=== PATIENT | female | born 1935 | race Caucasian/White ===

== ENCOUNTER 2023-08-13 13:22 | Outpatient (RCR) | payer OTHER, SELFPAY | END 2023-08-13 23:59 | disposition home or self-care (01) | LOC: RPT 13:22 | PROVIDERS: ATTENDING PHYSICIAN Internal Medicine | DX: M51.36 Other intervertebral disc degeneration, lumbar region (principal); S32.030S Wedge compression fracture of third lumbar vertebra, sequela; R26.89 Other abnormalities of gait and mobility | CPT/HCPCS: 97110 ==

== ENCOUNTER 2023-09-23 15:36 | Outpatient (RCR) | payer OTHER, SELFPAY | END 2023-09-23 23:59 | disposition home or self-care (01) | LOC: RPT 15:36 | PROVIDERS: ATTENDING PHYSICIAN Internal Medicine | DX: M51.36 Other intervertebral disc degeneration, lumbar region (principal); S32.030D Wedge compression fracture of third lumbar vertebra, subsequent encounter for fracture with routine healing; R26.89 Other abnormalities of gait and mobility; Z73.6 Limitation of activities due to disability | CPT/HCPCS: 97110 ==

== ENCOUNTER 2023-10-22 14:16 | Outpatient (RCR) | payer OTHER, SELFPAY | END 2023-10-22 23:59 | disposition home or self-care (01) | LOC: RPT 14:16 | PROVIDERS: ATTENDING PHYSICIAN Internal Medicine | DX: M51.36 Other intervertebral disc degeneration, lumbar region (principal); S32.030D Wedge compression fracture of third lumbar vertebra, subsequent encounter for fracture with routine healing; R26.89 Other abnormalities of gait and mobility; Z73.6 Limitation of activities due to disability | CPT/HCPCS: 97110 ==

== ENCOUNTER 2023-11-12 14:14 | Outpatient (RCR) | payer OTHER, SELFPAY | END 2023-11-12 23:59 | disposition home or self-care (01) | LOC: RPT 14:14 | PROVIDERS: ATTENDING PHYSICIAN Internal Medicine | DX: M51.36 Other intervertebral disc degeneration, lumbar region (principal); S32.030D Wedge compression fracture of third lumbar vertebra, subsequent encounter for fracture with routine healing; R26.89 Other abnormalities of gait and mobility; Z73.6 Limitation of activities due to disability | CPT/HCPCS: 97110 ==

== ENCOUNTER 2023-12-18 14:04 | Outpatient (RCR) | payer OTHER, SELFPAY | END 2023-12-18 23:59 | disposition home or self-care (01) | LOC: RPT 14:04 | PROVIDERS: ATTENDING PHYSICIAN Internal Medicine | DX: M51.36 Other intervertebral disc degeneration, lumbar region (principal); S32.030D Wedge compression fracture of third lumbar vertebra, subsequent encounter for fracture with routine healing; R26.89 Other abnormalities of gait and mobility; Z73.6 Limitation of activities due to disability | CPT/HCPCS: 97110 ==

== ENCOUNTER 2024-01-21 14:13 | Outpatient (RCR) | payer OTHER, SELFPAY | END 2024-01-21 23:59 | disposition home or self-care (01) | LOC: RPT 14:13 | PROVIDERS: ATTENDING PHYSICIAN Internal Medicine | DX: M51.36 Other intervertebral disc degeneration, lumbar region (principal); S32.030S Wedge compression fracture of third lumbar vertebra, sequela; R26.89 Other abnormalities of gait and mobility; Z73.6 Limitation of activities due to disability | CPT/HCPCS: 97110 ==

== ENCOUNTER 2024-02-18 14:09 | Outpatient (RCR) | payer OTHER, SELFPAY | END 2024-02-18 23:59 | disposition home or self-care (01) | LOC: RPT 14:09 | PROVIDERS: ATTENDING PHYSICIAN Internal Medicine | DX: M51.36 Other intervertebral disc degeneration, lumbar region (principal); S32.030S Wedge compression fracture of third lumbar vertebra, sequela; R26.89 Other abnormalities of gait and mobility; Z73.6 Limitation of activities due to disability | CPT/HCPCS: 97110 ==

== ENCOUNTER 2024-03-17 14:29 | Outpatient (RCR) | payer OTHER, SELFPAY | END 2024-03-17 23:59 | disposition home or self-care (01) | LOC: RPT 14:29 | PROVIDERS: ATTENDING PHYSICIAN Internal Medicine | DX: M51.36 Other intervertebral disc degeneration, lumbar region (principal); S32.030S Wedge compression fracture of third lumbar vertebra, sequela; R26.89 Other abnormalities of gait and mobility; Z73.6 Limitation of activities due to disability | CPT/HCPCS: 97110 ==

== ENCOUNTER 2024-04-22 13:04 | Outpatient (RCR) | payer OTHER, SELFPAY | END 2024-04-22 23:59 | disposition home or self-care (01) | LOC: RPT 13:04 | PROVIDERS: ATTENDING PHYSICIAN Internal Medicine | DX: M51.36 Other intervertebral disc degeneration, lumbar region (principal); S32.030S Wedge compression fracture of third lumbar vertebra, sequela; R26.89 Other abnormalities of gait and mobility; Z73.6 Limitation of activities due to disability | CPT/HCPCS: 97110 ==

== ENCOUNTER 2024-05-18 14:03 | Outpatient (RCR) | payer OTHER, SELFPAY | END 2024-05-18 23:59 | disposition home or self-care (01) | LOC: RPT 14:03 | PROVIDERS: ATTENDING PHYSICIAN Internal Medicine | DX: M51.36 Other intervertebral disc degeneration, lumbar region (principal); S32.030S Wedge compression fracture of third lumbar vertebra, sequela; S32.030D Wedge compression fracture of third lumbar vertebra, subsequent encounter for fracture with routine healing; R26.89 Other abnormalities of gait and mobility; Z73.6 Limitation of activities due to disability | CPT/HCPCS: 97110 ==

== ENCOUNTER 2024-06-23 14:10 | Outpatient (RCR) | payer OTHER, SELFPAY | END 2024-06-23 23:59 | disposition home or self-care (01) | LOC: RPT 14:10 | PROVIDERS: ATTENDING PHYSICIAN Internal Medicine | DX: M51.360 Other intervertebral disc degeneration, lumbar region with discogenic back pain only (principal); M51.36 Other intervertebral disc degeneration, lumbar region (principal); S32.030S Wedge compression fracture of third lumbar vertebra, sequela; S32.030D Wedge compression fracture of third lumbar vertebra, subsequent encounter for fracture with routine healing; R26.89 Other abnormalities of gait and mobility; Z73.6 Limitation of activities due to disability; M81.0 Age-related osteoporosis without current pathological fracture; M62.81 Muscle weakness (generalized) | CPT/HCPCS: 97110 ==

== ENCOUNTER 2024-07-20 14:11 | Outpatient (RCR) | payer OTHER, SELFPAY | END 2024-07-20 23:59 | disposition home or self-care (01) | LOC: RPT 14:11 | PROVIDERS: ATTENDING PHYSICIAN Internal Medicine | DX: M51.36 Other intervertebral disc degeneration, lumbar region (principal); M51.369 Other intervertebral disc degeneration, lumbar region without mention of lumbar back pain or lower extremity pain (principal); S32.030S Wedge compression fracture of third lumbar vertebra, sequela; Z73.6 Limitation of activities due to disability; R26.89 Other abnormalities of gait and mobility; S32.030D Wedge compression fracture of third lumbar vertebra, subsequent encounter for fracture with routine healing | CPT/HCPCS: 97110 ==

== ENCOUNTER 2024-08-18 13:09 | Outpatient (RCR) | payer OTHER, SELFPAY | END 2024-08-18 23:59 | disposition home or self-care (01) | LOC: RPT 13:09 | PROVIDERS: ATTENDING PHYSICIAN Internal Medicine | DX: M51.369 Other intervertebral disc degeneration, lumbar region without mention of lumbar back pain or lower extremity pain (principal); Z73.6 Limitation of activities due to disability; S32.030D Wedge compression fracture of third lumbar vertebra, subsequent encounter for fracture with routine healing; R26.89 Other abnormalities of gait and mobility; M51.36 Other intervertebral disc degeneration, lumbar region; S32.030S Wedge compression fracture of third lumbar vertebra, sequela | CPT/HCPCS: 97110 ==

== ENCOUNTER 2024-09-22 15:19 | Outpatient (RCR) | payer OTHER, SELFPAY | END 2024-09-22 23:59 | disposition home or self-care (01) | LOC: RPT 15:19 | PROVIDERS: ATTENDING PHYSICIAN Internal Medicine | DX: M51.369 Other intervertebral disc degeneration, lumbar region without mention of lumbar back pain or lower extremity pain (principal); Z73.6 Limitation of activities due to disability; S32.030D Wedge compression fracture of third lumbar vertebra, subsequent encounter for fracture with routine healing; R26.89 Other abnormalities of gait and mobility; S32.030S Wedge compression fracture of third lumbar vertebra, sequela; M51.36 Other intervertebral disc degeneration, lumbar region | CPT/HCPCS: 97110 ==

== ENCOUNTER → 2024-10-07 14:50 | Outpatient (REF) | payer OTHER, SELFPAY | LOC: RAD 14:50 | PROVIDERS: ATTENDING PHYSICIAN Internal Medicine Rheumatology; FAMILY PHYSICIAN Internal Medicine | DX: M81.0 Age-related osteoporosis without current pathological fracture (principal) | CPT/HCPCS: 77080 ==

== ENCOUNTER 2024-10-18 13:39 | Emergency (ER) | payer OTHER, SELFPAY ==
[2024-10-18 13:54] VITALS: BP 156/60
[2024-10-18 14:13] VITALS: BP 140/72
--- NOTE | 2024-10-18 14:15 | ED.GENMED ---
History of Present Illness
General
Chief Complaint: Urinary Symptoms
Source: patient
Exam Limitations: none
Time Seen by Provider: 10/18/24 13:54
Nursing documentation reviewed up to this point in time: agreed with
History of Present Illness
History of Present Illness:
89-year-old female with history of osteoarthritis, HTN, lumbar disc disease, balance disorder, fall risk, recent UTI so we should have vascular involved hematuria which made patient, no insert 79-year-old female with history of dementia brought
in by EMS from home with son at bedside. Pt does not know why she's here. She denies pain, shortness of breath, nausea. Son states she finished a 10-day regimen of amoxicillin about 2-1/2 weeks ago for UTI, shortly thereafter she tested positive
again and started having increased confusion again so she was put on nitrofurantoin and she is on day 5 of 7 of that.
He states she typically gets up and ambulates, takes care of herself, he lives with her and cooks for her, takes her with him whenever he goes anywhere, last time she was totally at her baseline was about a month ago and she has been having these
good days and bad days since. Today he states he could not even get her out of bed, she has been lethargic and more confused.
When I told patient about her son's concerns and asked her if she was aware that she has been acting more lethargic and confused she states 'no.'
Past History
Past History
ED Past Medical History: None, HTN, Psychiatric (Dementia is listed on her list of diagnoses but her son says she does not have dementia.) and Other (Chronic back pain)
ED Past Surgical History: None and Orthopedic
Patient has exhibited threatening behavior?: No
Social History
Tobacco: Non-smoker
Alcohol: None
Personal: Single
Living: with family
Employment: Employed
Review of Systems
Review of Systems
Allergies reviewed?: Yes
All Other Systems: ROS reviewed and negative except as documented in HPI and ROS
Constitutional: Reports fatigue; Denies fever
EENT: Denies sore throat
Respiratory: Denies trouble breathing
Cardiac: Denies chest pain or syncope
ABD/GI: Reports anorexia; Denies abdominal pain, nausea, vomiting or diarrhea
: Denies dysuria
Musculoskeletal: Reports back pain (Chronic back pain); Denies edema
Skin: Reports no symptoms
Neurological: Reports weakness (Generalized weakness); Denies headache
Phy Exam
Physical Exam
Physical Exam:
GENERAL: No acute distress. A&Ox3. Knows her name, '[facility],' '[place].' States for year
CONSTITUTIONAL: 100.8
EYES: clear, conjunctivae normal
ENMT: moist mucus membranes, Pharynx nl
RESPIRATORY: Regular respirations, nonlabored, lungs clear.
CARDIOVASCULAR: Regular rate and rhythm, no murmurs, no rubs.
GI: Soft, nontender, normal BS
MUSCULOSKELETAL: Limited ROM of right arm (son states due to arthritis) Legs thick, puffy, non pitting, cannot lift them off bed. Cannot hold them up with examiner lifting them. Well perfused.
SKIN: Warm, dry, pink
PSYCH: Depressed mood and affect. Closing eyes after short encounters, easily arouses with calling of name. Well kept.
NEUROLOGIC: Awake, alert when called, drifts back with eyes closed frequently. Disoriented at times. Speech clear. Strength equal throughout. No focal neurological deficits
Course
Orders/Labs/Results
Orders:
Orders
10/18/24 14:21
CMP [Comprehensive Metabolic Panel] Urgent
Complete Blood Count/With Diff Urgent
Urinalysis Reflex To Culture Urgent
Date Specimen was Collected: 10/18/24
Time Specimen was Collected: 14:19
Urine Microscopic Reflex Cult Urgent
10/18/24 15:07
CR Chest - 2 Views Urgent
Comment:
Reason For Exam: change in mental state
10/18/24 15:21
CT Head W/o Iv Contrast Urgent
Comment:
Reason For Exam: change in mental state
Abnormal Lab Results
10/18/24
14:21
WBC 12.9 H 10^3/uL
(4.8-10.8)
RBC 3.29 L 10^6/uL
(4.20-5.40)
Hgb 8.9 L g/dL
(12.0-16.0)
Hct 28.0 L %
(37.0-47.0)
MCHC 31.8 L g/dL
(33.0-37.0)
Abs Immat Gran (auto) 0.1 H 10^3/uL
(0-0.05)
Absolute Neuts (auto) 11.0 H 10^3/uL
(1.4-6.5)
Absolute Lymphs (auto) 0.8 L 10^3/uL
(1.2-3.4)
Absolute Monos (auto) 1.0 H 10^3/uL
(0.1-0.6)
Neutrophils % 85.5 H %
(42.2-75.2)
Lymphocytes % 6.4 L %
(20.5-51.1)
Potassium 3.4 L mmol/L
(3.5-5.1)
BUN 20 H mg/dl
(7-17)
Glucose 139 H mg/dl
(70-99)
Total Protein 6.0 L g/dl
(6.3-8.2)
Albumin 3.3 L g/dl
(3.5-5.0)
Urine Ketones 1+ A
(Negative)
Ur Occult Blood Reflex 1+ A
(Negative)
Urine Albumin (Reflex) 2+ A
(Neg - Trace)
10/18/24 14:21
10/18/24 14:21
Vital Signs
Initial and Last Documented VS:
Initial Vital Signs
Temp Pulse Resp BP Pulse Ox
100.8 F H 94 15 156/60 92
10/18/24 13:54 10/18/24 13:54 10/18/24 13:54 10/18/24 13:54 10/18/24 13:54
Last Documented Vital Signs
Temp Pulse Resp BP Pulse Ox
99.4 F 83 13 144/77 98
10/18/24 15:24 10/18/24 15:15 10/18/24 15:15 10/18/24 15:00 10/18/24 15:15
MDM/Problems Addressed
Differential Diagnosis Includes:
Progressive dementia, UTI, dehydration,
MDM/Problems Addressed:
89-year-old female with history of osteoarthritis, HTN, lumbar disc disease, balance disorder, fall risk, recent UTI so we should have vascular involved hematuria which made patient, no insert 79-year-old female with history of dementia brought
in by EMS from home with son at bedside. Pt does not know why she's here. She denies pain, shortness of breath, nausea. Son states she finished a 10-day regimen of amoxicillin about 2-1/2 weeks ago for UTI, shortly thereafter she tested positive
again and started having increased confusion again so she was put on nitrofurantoin and she is on day 5 of 7 of that.
He states she typically gets up and ambulates, takes care of herself, he lives with her and cooks for her, takes her with him whenever he goes anywhere, last time she was totally at her baseline was about a month ago and she has been having these
good days and bad days since. Today he states he could not even get her out of bed, she has been lethargic and more confused. Her appetite has been poor lately. When she is sitting at the dinner table she will eat a little and then put her head
down on the table.
When I told patient about her son's concerns and asked her if she was aware that she has been acting more lethargic and confused she states 'no.'
3:00 p.m.
CBC with mild leukocytosis, elevated neutrophils
CMP: No clinically significant abnormality
UA: Negative for infection
Patient appears to have some degree of dementia although son denies.
Since he thinks her mental status is changed I will obtain a CAT scan of her head
4:[address] No acute abnormality
Chest x-ray: NAD
This examiner with the help of 1 other person got patient out of bed and she was ambulating with a walker slowly but independently with minimal guidance.
Son back and is comfortable taking pt home.
He is instructed to f/u with PCP and have a discussion about dementia which he states he will do
ED Attending Note
-
Portions of this chart may have been created with voice recognition software.� Occasional wrong word or��sound alike� substitutions may have occurred due to the inherent limitations of voice recognition software.
Discharge Plan
Departure
Prescriptions:
No Action
furosemide [Lasix] 40 mg Tablet
40 mg PO DAILY
oxybutynin chloride 15 mg Tablet Extended Release 24hr
15 mg PO DAILY
valsartan 80 mg Tablet
80 mg PO DAILY
tramadol 50 mg Tablet
50 mg PO HS
nitrofurantoin macrocrystal 100 mg Capsule
100 mg PO BID
ibuprofen [Advil] 200 mg Tablet
400 mg PO BID
Referrals:
Jori Card MD [Family Provider] -
Interventions
Interventions:
*Risk Screen - Suicide Last Done: 10/18/24 13:56
*Neglect/Abuse Screening Last Done: 10/18/24 13:56
ED- Fall Risk Assessment Last Done: 10/18/24 14:13
*ED COVID-19 Vaccine History Last Done: 10/18/24 14:12
ED-Female Genitourinary Assessment Last Done: 10/18/24 14:14
Discharge Date and Time
Print Language: SERBIAN
[2024-10-18 14:29] LABS: % Basophils 0.2 % (0-2); % Immature Granulocytes 0.5 % (0-0.5); % Lymphocytes 6.4 % (20.5-51.1); % Monocytes 7.4 % (1.7-9.3); % Neutrophils 85.5 % (42.2-75.2); Absolute Immature Granulocytes 0.1 10^3/uL (0-0.05); Absolute Lymphocytes 0.8 10^3/uL (1.2-3.4); Hemoglobin 8.9 g/dL (12.0-16.0); Mean Corp Hgb Conc. 31.8 g/dL (33.0-37.0); Mean Corpuscular Hgb 27.1 pg (27.0-31.0); Mean Corpuscular Volume 85.1 fL (81.0-99.0); Nucleated Red Blood Cells % 0 %; Platelet Count 381 10^3/uL (130-400); Red Blood Cell Count 3.29 10^6/uL (4.20-5.40); Red Cell Dist. Width 14.3 % (11.5-14.5); White Blood Cell Count 12.9 10^3/uL (4.8-10.8)
[2024-10-18 14:30] LABS: Urine Albumin 2+ (Neg - Trace); Urine Bilirubin Negative (Negative); Urine Character Clear (Clear); Urine Color Yellow; Urine Glucose Negative (Negative); Urine Ketone 1+ (Negative); Urine Leukocyte Negative (Negative); Urine Nitrite Negative (Negative); Urine Occult Blood 1+ (Negative); Urine Urobilinogen Negative (Neg - 1+)
[2024-10-18 14:56] LABS: ALT (SGPT) 13 U/L (0-35); AST (SGOT) 17 U/L (14-36); Albumin 3.3 g/dl (3.5-5.0); Alkaline Phosphatase 106 U/L (38-126); Blood Urea Nitrogen 20 mg/dl (7-17); Calcium 9.2 mg/dl (8.4-10.2); Carbon Dioxide 29 mmol/L (22-30); Chloride 103 mmol/L (98-107); Glucose 139 mg/dl (70-99); Potassium 3.4 mmol/L (3.5-5.1); Sodium 138 mmol/L (135-145); Total Bilirubin 0.7 mg/dl (0.2-1.3); eGFR > 60.00
[2024-10-18 15:00] VITALS: BP 144/77
[2024-10-18 15:14] LABS: Urine Amorphous Seen; Urine Red Blood Cell 0-2 /HPF (0-2); Urine Squamous Cell 0-2 /LPF (Few)
[2024-10-18 15:15] LABS: Urine White Cell 0-2 /HPF (0-5)
[2024-10-18 16:09] VITALS: BP 154/87
[2024-10-18 17:00] VITALS: BP 171/77
[2024-10-18 18:00] VITALS: BP 160/78
== END 2024-10-18 18:20 | disposition home or self-care (01) ==
LOC: EMR 13:39
PROVIDERS: Registered Nurse; EMERGENCY PHYSICIAN Student in an Organized Health Care Education/Training Program; FAMILY PHYSICIAN Internal Medicine
DX: R53.83 Other fatigue (principal); R41.0 Disorientation, unspecified; R53.1 Weakness; F03.90 Unspecified dementia, unspecified severity, without behavioral disturbance, psychotic disturbance, mood disturbance, and anxiety; I10 Essential (primary) hypertension; M19.90 Unspecified osteoarthritis, unspecified site; G89.29 Other chronic pain; M54.9 Dorsalgia, unspecified; M81.0 Age-related osteoporosis without current pathological fracture; M85.80 Other specified disorders of bone density and structure, unspecified site; Z87.440 Personal history of urinary (tract) infections; Z87.891 Personal history of nicotine dependence; Z88.1 Allergy status to other antibiotic agents
CPT/HCPCS: 99285; 51701; 70450; 71046; 80053; 81003; 81015; 85025

== ENCOUNTER 2024-10-20 15:05 | Outpatient (RCR) | payer OTHER, SELFPAY | END 2024-10-20 23:59 | disposition home or self-care (01) | LOC: RPT 15:05 | PROVIDERS: ATTENDING PHYSICIAN Internal Medicine | DX: M51.369 Other intervertebral disc degeneration, lumbar region without mention of lumbar back pain or lower extremity pain (principal); Z73.6 Limitation of activities due to disability; S32.030D Wedge compression fracture of third lumbar vertebra, subsequent encounter for fracture with routine healing; R26.89 Other abnormalities of gait and mobility; S32.030S Wedge compression fracture of third lumbar vertebra, sequela; M51.36 Other intervertebral disc degeneration, lumbar region | CPT/HCPCS: 97110 ==

== ENCOUNTER 2024-11-16 13:54 | Outpatient (RCR) | payer OTHER, SELFPAY | END 2024-11-16 23:59 | disposition home or self-care (01) | LOC: RPT 13:54 | PROVIDERS: ATTENDING PHYSICIAN Internal Medicine | DX: M51.369 Other intervertebral disc degeneration, lumbar region without mention of lumbar back pain or lower extremity pain (principal); Z73.6 Limitation of activities due to disability; S32.030D Wedge compression fracture of third lumbar vertebra, subsequent encounter for fracture with routine healing; R26.89 Other abnormalities of gait and mobility; S32.030S Wedge compression fracture of third lumbar vertebra, sequela; M51.36 Other intervertebral disc degeneration, lumbar region | CPT/HCPCS: 97110 ==

== ENCOUNTER 2024-12-15 15:11 | Outpatient (RCR) | payer OTHER, SELFPAY | END 2024-12-15 23:59 | disposition home or self-care (01) | LOC: RPT 15:11 | PROVIDERS: ATTENDING PHYSICIAN Internal Medicine | DX: M51.369 Other intervertebral disc degeneration, lumbar region without mention of lumbar back pain or lower extremity pain (principal); S32.030S Wedge compression fracture of third lumbar vertebra, sequela; S32.030D Wedge compression fracture of third lumbar vertebra, subsequent encounter for fracture with routine healing; R26.89 Other abnormalities of gait and mobility; Z73.6 Limitation of activities due to disability; M51.36 Other intervertebral disc degeneration, lumbar region | CPT/HCPCS: 97110 ==

== ENCOUNTER 2025-01-12 12:15 | Outpatient (RCR) | payer OTHER, SELFPAY | END 2025-01-12 23:59 | disposition home or self-care (01) | LOC: RPT 12:15 | PROVIDERS: ATTENDING PHYSICIAN Internal Medicine | DX: M51.369 Other intervertebral disc degeneration, lumbar region without mention of lumbar back pain or lower extremity pain (principal); Z73.6 Limitation of activities due to disability; S32.030D Wedge compression fracture of third lumbar vertebra, subsequent encounter for fracture with routine healing; R26.89 Other abnormalities of gait and mobility; S32.030S Wedge compression fracture of third lumbar vertebra, sequela; M51.36 Other intervertebral disc degeneration, lumbar region | CPT/HCPCS: 97110 ==

== ENCOUNTER 2025-02-16 15:38 | Outpatient (RCR) | payer OTHER, SELFPAY | END 2025-02-16 23:59 | disposition home or self-care (01) | LOC: RPT 15:38 | PROVIDERS: ATTENDING PHYSICIAN Internal Medicine | DX: M51.369 Other intervertebral disc degeneration, lumbar region without mention of lumbar back pain or lower extremity pain (principal); Z73.6 Limitation of activities due to disability; S32.030D Wedge compression fracture of third lumbar vertebra, subsequent encounter for fracture with routine healing; R26.89 Other abnormalities of gait and mobility; X58.XXXD Exposure to other specified factors, subsequent encounter; S32.030S Wedge compression fracture of third lumbar vertebra, sequela; M51.36 Other intervertebral disc degeneration, lumbar region | CPT/HCPCS: 97110 ==

== ENCOUNTER 2025-03-23 15:19 | Outpatient (RCR) | payer OTHER, SELFPAY | END 2025-03-23 23:59 | disposition home or self-care (01) | LOC: RPT 15:19 | PROVIDERS: ATTENDING PHYSICIAN Internal Medicine | DX: M51.369 Other intervertebral disc degeneration, lumbar region without mention of lumbar back pain or lower extremity pain (principal); Z73.6 Limitation of activities due to disability; S32.030D Wedge compression fracture of third lumbar vertebra, subsequent encounter for fracture with routine healing; R26.89 Other abnormalities of gait and mobility; S32.030S Wedge compression fracture of third lumbar vertebra, sequela; M51.36 Other intervertebral disc degeneration, lumbar region | CPT/HCPCS: 97110 ==

== ENCOUNTER 2025-04-20 15:06 | Outpatient (RCR) | payer OTHER, SELFPAY | END 2025-04-20 23:59 | disposition home or self-care (01) | LOC: RPT 15:06 | PROVIDERS: ATTENDING PHYSICIAN Internal Medicine | DX: M51.369 Other intervertebral disc degeneration, lumbar region without mention of lumbar back pain or lower extremity pain (principal); Z73.6 Limitation of activities due to disability; S32.030D Wedge compression fracture of third lumbar vertebra, subsequent encounter for fracture with routine healing; R26.89 Other abnormalities of gait and mobility; S32.030S Wedge compression fracture of third lumbar vertebra, sequela; M51.36 Other intervertebral disc degeneration, lumbar region | CPT/HCPCS: 97110 ==

== ENCOUNTER 2025-05-17 15:00 | Outpatient (RCR) | payer OTHER, SELFPAY | END 2025-05-17 23:59 | disposition home or self-care (01) | LOC: RPT 15:00 | PROVIDERS: ATTENDING PHYSICIAN Internal Medicine | DX: M51.369 Other intervertebral disc degeneration, lumbar region without mention of lumbar back pain or lower extremity pain (principal); Z73.6 Limitation of activities due to disability; S32.030D Wedge compression fracture of third lumbar vertebra, subsequent encounter for fracture with routine healing; R26.89 Other abnormalities of gait and mobility; S32.030S Wedge compression fracture of third lumbar vertebra, sequela; M51.36 Other intervertebral disc degeneration, lumbar region | CPT/HCPCS: 97110 ==

== ENCOUNTER → 2025-06-10 13:41 | Outpatient (REF) | payer OTHER, SELFPAY | LOC: PAVMRI 13:41 | PROVIDERS: ATTENDING PHYSICIAN Ophthalmology; FAMILY PHYSICIAN Internal Medicine | DX: H47.293 Other optic atrophy, bilateral (principal) | CPT/HCPCS: 70551 ==

== ENCOUNTER 2025-06-21 14:23 | Outpatient (RCR) | payer OTHER, SELFPAY | END 2025-06-21 23:59 | disposition home or self-care (01) | LOC: RPT 14:23 | PROVIDERS: ATTENDING PHYSICIAN Internal Medicine | DX: M51.369 Other intervertebral disc degeneration, lumbar region without mention of lumbar back pain or lower extremity pain (principal); Z73.6 Limitation of activities due to disability; S32.030A Wedge compression fracture of third lumbar vertebra, initial encounter for closed fracture; S32.030D Wedge compression fracture of third lumbar vertebra, subsequent encounter for fracture with routine healing; R26.89 Other abnormalities of gait and mobility; S32.030S Wedge compression fracture of third lumbar vertebra, sequela | CPT/HCPCS: 97110 ==

== ENCOUNTER 2025-07-19 11:50 | Outpatient (RCR) | payer OTHER, SELFPAY | END 2025-07-19 23:59 | disposition home or self-care (01) | LOC: RPT 11:50 | PROVIDERS: ATTENDING PHYSICIAN Internal Medicine | DX: M51.369 Other intervertebral disc degeneration, lumbar region without mention of lumbar back pain or lower extremity pain (principal); Z73.6 Limitation of activities due to disability; R26.89 Other abnormalities of gait and mobility; S32.030A Wedge compression fracture of third lumbar vertebra, initial encounter for closed fracture; S32.030S Wedge compression fracture of third lumbar vertebra, sequela; M51.36 Other intervertebral disc degeneration, lumbar region; S32.030D Wedge compression fracture of third lumbar vertebra, subsequent encounter for fracture with routine healing | CPT/HCPCS: 97110 ==

== ENCOUNTER 2025-08-23 13:29 | Outpatient (RCR) | payer OTHER, SELFPAY | END 2025-08-23 23:59 | disposition home or self-care (01) | LOC: RPT 13:29 | PROVIDERS: ATTENDING PHYSICIAN Internal Medicine | DX: M51.369 Other intervertebral disc degeneration, lumbar region without mention of lumbar back pain or lower extremity pain (principal); Z73.6 Limitation of activities due to disability; S32.030A Wedge compression fracture of third lumbar vertebra, initial encounter for closed fracture; R26.89 Other abnormalities of gait and mobility; S32.030S Wedge compression fracture of third lumbar vertebra, sequela; S32.030D Wedge compression fracture of third lumbar vertebra, subsequent encounter for fracture with routine healing; M51.36 Other intervertebral disc degeneration, lumbar region | CPT/HCPCS: 97110 ==